=== PATIENT | female | born 1970 | race Caucasian/White ===

== ENCOUNTER 2020-04-10 17:39 | Outpatient (CLI) | payer OTHER, SELFPAY ==
--- NOTE | ~2020-04-10 | MM_ITS ---
EXAMINATION: MM screening [facility] BI w tenzin HISTORY: Screening mammogram TECHNIQUE: Craniocaudal and mediolateral oblique 3-D tomosynthesis images were obtained and synthetic 2-D images were generated. CAD analysis was submitted and interpreted. COMPARISON: 10/31/2018, 02/11/2017, 08/18/2016, 08/14/2016 BREAST PARENCHYMAL COMPOSITION: There are scattered areas of fibroglandular density. FINDINGS: There is no evidence of suspicious mass, calcification, or architectural distortion to sugg est malignancy in either breast. There has been no suspicious interval change. IMPRESSION: 1. No mammographic evidence of malignancy. 2. Recommend routine screening mammography in one year. BI-RADS Category 1: Negative Reviewed, dictated and finalized at location A.
== END 2020-04-10 17:40 | disposition home or self-care (01) ==
PROVIDERS: PCP Family Medicine Adolescent Medicine; Visit Provider Obstetrics & Gynecology
DX: Z12.31 Encounter for screening mammogram for malignant neoplasm of breast (principal)
CPT/HCPCS: 77063; 77067

== ENCOUNTER 2020-12-10 17:36 | Emergency (ER) | payer OTHER, SELFPAY ==
[2020-12-10] VITALS (7 sets, daily range): BP systolic 117–155; BP diastolic 81–95; PULSE 61–73; RESP 14–16; TEMP 36.3; O2SAT 97–100
--- NOTE | ~2020-12-10 | CT_ITS ---
EXAMINATION: CTA brain carotid EXAM DATE: 12/10/2020 19:55 INDICATION: Right-sided numbness, facial and arm. TECHNIQUE: Noncontrast head CT. Spiral CTA of the carotid arteries was performed with intravenous i njection 100 cc of Omnipaque 350. Axial, coronal, sagittal reformatted images reviewed. Additional r eformatted images created on dedicated 3-D workstation. NASCET comparable standard used to assess th e degree of arterial stenosis. Spiral CT angiogram cerebral arteries performed with the same intrave nous injection of contrast. Source images of the brain CTA transferred to dedicated workstation for 3 -D rotational image creation. Coronal, sagittal maximum intensity pixel images also reviewed. The d ose-length product (DLP) for this examination was 1824.27 mGy-cm. The exposure was tailored accordi ng to patient size, and iterative reconstruction (ASIR) was used as additional dose reduction techniq ue. Correlation is made to brain MRI 06/19/2019. FINDINGS: There is no carotid bulb plaque or stenosis. Minimal carotid siphon arterial sclerosis. The re is left-sided posterior communicating artery dominant posterior cerebral artery. There is no car otid or vertebral basilar arterial dissection or fibromuscular dysplasia. There are no cerebral arter y aneurysms. There is symmetric cerebral artery arborization. The sagittal, transverse and sigmoid si nuses enhance normally, no venous sinus thrombosis. Internal cerebral veins also enhance normally. 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 There is no acute intraparenchymal hemorrhage. No evidence of intraparenchymal brain mass lesion. No evidence of acute infarction. There is no mass effect or midline shift. There is no obstructive hydrocephalus suspected. There are no extra-axial collections. Incidental Findings: Mild cervical arthropathy. IMPRESSION: 1. No acute carotid or intracranial findings. 2. Bilateral carotid bulb 0% stenosis. Reviewed, dictated and finalized at location A.
--- NOTE | ~2020-12-10 | XR_ITS ---
EXAMINATION: XR chest 1V portable EXAM DATE: 12/10/2020 18:11 INDICATION: Shortness of breath, right-sided numbness. TECHNIQUE: Portable AP frontal chest x-ray was obtained. Comparison is made to prior examination from 03/12/2019. FINDINGS: The lungs are clear. There are no pleural effusions. The cardiomediastinal silhouette is within normal limits. There is no pneumothorax suspected. The bones and soft tissues are unremarkab le. IMPRESSION: No acute cardiopulmonary findings. Reviewed, dictated and finalized at location A.
--- NOTE | 2020-12-10 17:57 | ECG_ITS ---
Measurements Intervals [place] Rate: 58 P: 5 [place]: 161 QRS: 4 QRSD: 98 T: 30 QT: 425 QTc: 418 Interpretive Statements SINUS BRADYCARDIA DELAYED PRECORDIAL R/S TRANSITION BORDERLINE ECG Electronically Signed On 12-10-2020 18:09:35 CDT by Butch Bee D.O.
[2020-12-10 18:12] LABS: Basophils Absolute Auto 0.1 K/mm3 (0.0-0.1); Basophils Percent Auto 0.8 % (0.2-1.2); Eosinophils Absolute Auto 0.1 K/mm3 (0-0.3); Eosinophils Percent Auto 1.7 % (0-4.4); Hematocrit 38.2 % (37.0-47.0); Hemoglobin 12.9 g/dL (12.0-15.0); Immature Granulocyte Absolute 0.03 K/mm3 (0.00-0.031); Immature Granulocyte Percent A 0.4 % (0-0.5); Lymphocytes Absolute Auto 3.03 K/mm3 (0.9-3.2); Lymphocytes Percent Auto 36.2 % (18.3-44.2); Mean Corpuscular HGB Conc 33.8 g/dl (32-36); Mean Corpuscular Hemoglobin 30.6 pg (26-34); Mean Corpuscular Volume 90.7 fl (80-100); Mean Platelet Volume 8.1 fl (7.4-10.4); Monocytes Absolute Auto 0.6 K/mm3 (0.1-0.6); Monocytes Percent Auto 7.5 % (2.6-8.5); Neutrophils Absolute Auto 4.5 K/mm3 (1.3-6.7); Neutrophils Percent Auto 53.4 % (45.5-73.1); Platelet Count Result 410 k/mm3 (150-375); Red Blood Count 4.21 M/mm3 (4.2-5.4); Red Cell Distribution Width 11.9 % (11.5-14.5); White Blood Count 8.4 K/mm3 (4.5-10.0)
[2020-12-10 18:21] LABS: INR 0.9; Prothrombin Time 13.2 Seconds (11.1-14.7)
[2020-12-10 18:22] LABS: Anion Gap 13 mmol/L (8-16); Blood Urea Nitrogen 11 mg/dL (7-17); Calcium 8.9 mg/dL (8.4-10.2); Carbon Dioxide 20 mmol/L (22-30); Chloride 101 mmol/L (98-107); Estimated CRCL calculation 105 ml/min; Estimated Glomerular Filt Rate > 60; Glucose 102 mg/dL (65-105); Partial Thromboplastin Time 29.4 SECONDS (22.3-36.8); Potassium 2.9 mmol/L (3.4-5.0); Sodium 134 mmol/L (137-145)
[2020-12-10 18:34] LABS: Troponin I < 0.012 ng/mL (0.000-0.034)
[2020-12-10] MEDS: POTASSIUM CHLORIDE 20 MEQ PACKET (FOR LIQUID) 40 MEQ PO (18:49)
[2020-12-10 18:53] LABS: Magnesium 1.5 mg/dL (1.6-2.3)
[2020-12-10] MEDS: LORazepam INJ (*CRX) 2 MG/ML VIAL 1 MG IV PUSH (18:58)
[2020-12-10] MEDS: MAGNESIUM SULF 2 GM/WATER 50ML 2 GM/50 ML BAG IVPB (18:59)
--- NOTE | 2020-12-10 21:01 | ED.GENADULT ---
HPI - General Adult General Chief complaint: Neuro Symptoms/Deficit Stated complaint: near-syncope, tingling, nausea Time Seen by Provider: 12/10/20 17:44 Source: patient and RN notes reviewed Mode of arrival: ambulatory Limitations: no limitations History of Present Illness HPI narrative: Patient is a 50-year-old female who presents per private vehicle for evaluation of having developed some tingling in the right side of the face followed with shortness of breath chest discomfort and tingling and numbness in the lower extremities and weakness of the right upper arm patient on arrival is very anxious patient notes history of headaches in the distant past nothing recently denies any similar occurrence of this but notes that she has had anxiety in the past as well patient does not take any medications and denies any pertinent past medical history and on arrival is acutely anxious Related Data Home Medications Medication Instructions Recorded Confirmed No Home Medications 12/10/20 12/10/20 Allergies Allergy/AdvReac Type Severity Reaction Status Date / Time No Known Allergies Allergy Mild Verified 12/10/20 18:30 Review of Systems Review of Systems: All systems reviewed & are unremarkable except as noted in HPI and below PMFSH Past Medical History Medical History (Updated 12/10/20 @ 21:06 by Max Reese PA-C) Anxiety Cluster headache Social History Social History (Updated 12/10/20 @ 21:03 by Max Reese PA-C) Smoking status: Never smoker Exam Narrative: Exam Narrative: GENERAL: Well-appearing, well-nourished, and in no acute distress. HEAD: Normocephalic, atraumatic. EYES: PERRLA and EOMI. ENT: Nares clear, no rhinorrhea or epistaxis. Mucous membranes moist. NECK: Supple. No adenopathy or masses. No carotid bruits or JVD CHEST: Clear to auscultation. No respiratory distress. No wheezes rales or rhonchi HEART: Regular rate and rhythm. No murmur heard. Normal peripheral pulses. ABDOMEN: Soft, nontender, nondistended, normal active bowel sounds. EXTREMITIES: Normal range of motion. No edema. SKIN: Warm, dry, no rash. NEURO: No focal deficits. Alert and oriented x3. Cranial nerves II through XII grossly intact. Normal speech. Normal gait. Normal [id number] and [id number]. Equal roastmaster. No pronator drift. Cerebellar intact PSYCH: Normal mood and affect. Course Course Emergency Course: Patient resting comfortably in the room at this time was evaluated is feeling much better at this time with symptoms resolved was found to have slightly low potassium magnesium and potassium were given in the emergency department patient without other high risk changes in her evaluation felt appropriate for outpatient reevaluation with primary care and will be discharged home for outpatient reevaluation and agrees with this treatment plan Vital Signs Vital signs: Vital Signs Temperature 97.3 F L 12/10/20 17:42 Pulse Rate 73 12/10/20 17:42 Respiratory Rate 14 12/10/20 17:42 Blood Pressure 155/88 H 12/10/20 17:42 Pulse Oximetry 99 12/10/20 17:42 Temperature 97.3 F L 12/10/20 17:42 Pulse Rate 72 12/10/20 19:12 Respiratory Rate 16 12/10/20 18:47 Blood Pressure 155/88 H 12/10/20 17:42 Pulse Oximetry 99 12/10/20 17:42 Medical Decision Making MDM Narrative Medical decision making narrative: Patient symptoms have resolved there are no focal neurological deficits on exam. Subarachnoid hemorrhage is felt to be unlikey at this time. There is no history of fever, and neck is supple without meningismus, making meningitis unlikely. No traumatic history or signs of trauma on exam. No risk factors for CVA, risk factors reviewed. NO ocular signs on exam and in history to suggest acute glaucoma. Patients headache and symptoms are felt to be a reasonable candidate for outpatient evaluation Vital Signs Vital Signs: Vital Signs Temperature 97.3 F L 12/10/20 17:42 Pulse Rate 73
== END 2020-12-10 21:15 | disposition home or self-care (01) ==
PROVIDERS: Emergency Medicine Emergency Medical Services; Emergency Provider Emergency Medicine; PCP Family Medicine Adolescent Medicine
DX: R51.9 Headache, unspecified (principal); E87.6 Hypokalemia
CPT/HCPCS: 36415; 70496; 70498; 71045; 80048; 83735; 84484; 85025; 85610; 85730; 93005; 96365; 96375; 99284; A9270; J2060; J3475; Q9967

== ENCOUNTER 2021-10-15 19:47 | Emergency (ER) | payer OTHER, SELFPAY ==
--- NOTE | ~2021-10-15 | CT_ITS ---
EXAMINATION: CT soft tissue neck w con DATE: 10/15/2021 21:28 INDICATION: Right neck pain and swelling at the head of the clavicle. TECHNIQUE: Computed tomography (CT) of the neck was performed with 75 mL Omnipaque-350 intravenous co ntrast. Automated exposure control and iterative reconstruction technique were employed. The dose-reji gth product was 514.35 mGy-cm. COMPARISON: CTA neck 12/10/2020 FINDINGS: There are no pathologically enlarged lymph nodes. There is mild mucosal thickening in the p aranasal sinuses. The mastoid air cells are normal. There is mild cervical spondylosis. 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 There is asymmetric fat stranding around the right st ernoclavicular joint, new from 12/10/20. No erosions of bone. IMPRESSION: 1. Asymmetric fat stranding around the right sternoclavicular joint, new from 12/10/2020, consistent w ith inflammation versus infection. Reviewed, dictated and finalized at location A. IMPRESSION: 1. Asymmetric fat stranding around the right sternoclavicular joint, new from , consistent with inflammation versus infection.
[2021-10-15 19:48] VITALS: BP 164/105; PULSE 83; RESP 18; TEMP 36.6; O2SAT 98
[2021-10-15] MEDS: diazePAM INJ (*CRX) 10 MG/2 ML SYRINGE 5 MG IV PUSH (20:39)
[2021-10-15] MEDS: KETOROLAC 30 MG/ML VIAL (*BKC) IV PUSH (20:41)
[2021-10-15 21:01] LABS: Estimated CRCL calculation 105 ml/min; Estimated Glomerular Filt Rate > 60
--- NOTE | 2021-10-15 22:03 | ED.GENADULT ---
HPI - General Adult General Chief complaint: Neck Pain/Injury Stated complaint: neck swelling Time Seen by Provider: 10/15/21 20:15 History of Present Illness HPI narrative: Patient is a 50-year-old female who presents ER with right-sided shoulder pain and concerns for swelling. Patient reports couple weeks ago she was moving her mother and developed pain around the clavicular head of her chest wall. There is persisted. Tonight she lifted some folding chairs about a baseball game and the pain suddenly increased. She feels like she has some tingling or numbness over the supraclavicular portion of her neck and shoulder. No overt shoulder pain. No fevers or chills or sweats. No discoloration. No difficulty breathing or swallowing. Related Data Allergies Allergy/AdvReac Type Severity Reaction Status Date / Time No Known Allergies Allergy Mild Verified 10/15/21 19:52 Review of Systems Review of Systems: All systems reviewed & are unremarkable except as noted in HPI and below Constitutional: Constitutional: Denies chills, Denies fever(s) and Denies weakness ENT: Denies nasal congestion and Denies sore throat Comments: Neck swelling Cardiovascular: Cardiovascular: Denies chest pain and Denies radiating jaw, neck or arm pain Respiratory: Respiratory: Denies dyspnea Musculoskeletal: Musculoskeletal: Reports muscle cramps Neurologic: Denies focal weakness and Reports numbness PMFSH Past Medical History Medical History (Updated 10/15/21 @ 22:27 by Walter Hutchins MD) Anxiety Cluster headache Surgical History Surgical History (Updated 10/15/21 @ 22:18 by Walter Hutchins MD) H/O elbow surgery History of section Social History Social History (Updated 12/10/20 @ 21:03 by Max Reese PA-C) Smoking status: Never smoker Exam Narrative: GENERAL: Well-appearing, well-nourished, and in no acute distress. HEAD: Normocephalic, atraumatic. EYES: PERRL and EOMI. NECK: Supple. No change in sensation with palpation and sharp touch testing to the right neck. Mild asymmetry with swelling on the right side. Normal carotid pulse. CHEST: Clear to auscultation. No respiratory distress. Tender palpation of the right clavicular head at the sternum. Mild swelling around this area. HEART: Regular rate and rhythm. Normal peripheral pulses. EXTREMITIES: Normal range of motion. No edema. NEURO: No focal deficits. Alert and oriented x3. PSYCH: Normal mood and affect. Course Course Emergency Course: Patient informed of results. Discussed treatment plan. We will plan anti-inflammatories muscle x-rays for home. Discussed reducing activity and following up with PCP. Vital Signs Vital signs: Vital Signs Temperature 97.9 F 10/15/21 19:48 Pulse Rate 83 10/15/21 19:48 Respiratory Rate 18 10/15/21 19:48 Blood Pressure 164/105 H 10/15/21 19:48 Pulse Oximetry 98 10/15/21 19:48 Temperature 97.9 F 10/15/21 19:48 Pulse Rate 83 10/15/21 19:48 Respiratory Rate 18 10/15/21 19:48 Blood Pressure 164/105 H 10/15/21 19:48 Pulse Oximetry 98 10/15/21 19:48 Medical Decision Making Vital Signs Vital Signs: Vital Signs Temperature 97.9 F 10/15/21 19:48 Pulse Rate 83 10/15/21 19:48 Respiratory Rate 18 10/15/21 19:48 Blood Pressure 164/105 H 10/15/21 19:48 Pulse Oximetry 98 10/15/21 19:48 Temperature 97.9 F 10/15/21 19:48 Pulse Rate 83 10/15/21 19:48 Respiratory Rate 18 10/15/21 19:48 Blood Pressure 164/105 H 10/15/21 19:48 Pulse Oximetry 98 10/15/21 19:48 Lab Data Result diagrams: 10/15/21 20:35 Labs: Lab Results 10/15/21 Range/Units 20:35 Creatinine 0.70 (0.7-1.0) mg/dL Estim Creat Clear Calc 105 ml/min Estimated GFR > 60 (59 - ) Imaging Data Radiologist's impression: ITS Impressions Soft Tissue Neck CT 10/15/21 21:37 IMPRESSION: 1. Asymmetric fat stranding around the right sternoclavicular join
[2021-10-15 22:49] VITALS: PULSE 68; RESP 18; O2SAT 99
== END 2021-10-15 22:51 | disposition home or self-care (01) ==
PROVIDERS: Emergency Provider Emergency Medicine; PCP Family Medicine Adolescent Medicine
DX: S43.61XA Sprain of right sternoclavicular joint, initial encounter (principal); X50.9XXA Other and unspecified overexertion or strenuous movements or postures, initial encounter
CPT/HCPCS: 36415; 70491; 82565; 96374; 96375; 99284; J1885; J3360; Q9967

== ENCOUNTER 2022-06-25 15:51 | Outpatient (CLI) | payer OTHER, SELFPAY ==
--- NOTE | ~2022-06-25 | MM_ITS ---
EXAMINATION: MM screening [facility] BI w tenzin HISTORY: Screening mammogram TECHNIQUE: Craniocaudal and mediolateral oblique 3-D tomosynthesis images were obtained and synthetic 2-D images were generated. Bilateral rotated lateral CC views. CAD analysis was submitted and interp reted. COMPARISON: 04/10/2020, 10/31/2018 bilateral screening mammogram examinations BREAST PARENCHYMAL COMPOSITION: There are scattered areas of fibroglandular density. FINDINGS: Stable circumscribed benign-appearing density in the posterior upper-outer right breast, li krishna a benign intramammary lymph node Approximately 6 mm circumscribed opacity is noted at the posterior margin of the mid to lower outer l eft breast (craniocaudal Tomosynthesis image 28/74). Diagnostic left mammogram and left breast ultras ound examination are recommended. No suspicious mass, architectural distortion, malignant calcification, skin thickening or retraction of either breast is noted otherwise. IMPRESSION: 1. 6 mm circumscribed mass at the posterior mid to lower outer left breast 2. Diagnostic left mammogram and left breast ultrasound examination are recommended BI-RADS Category 0: Incomplete: Needs additional imaging evaluation. Reviewed, dictated and finalized at location A. S TRANSFER CLERK IMPRESSION: 1. 6 mm circumscribed mass at the posterior mid to lower outer left breast 2. Diagnostic left mammogram and left breast ultrasound examination are recomme nded BI-RADS Category 0: Incomplete: Needs additional imaging evaluation.
== END 2022-06-25 15:52 | disposition home or self-care (01) ==
LOC: ANHIMG 15:55
PROVIDERS: PCP Family Medicine Adolescent Medicine; Visit Provider Obstetrics & Gynecology
DX: Z12.31 Encounter for screening mammogram for malignant neoplasm of breast (principal); R92.8 Other abnormal and inconclusive findings on diagnostic imaging of breast
CPT/HCPCS: 77063; 77067

== ENCOUNTER 2022-07-12 12:25 | Outpatient (CLI) | payer OTHER, SELFPAY ==
--- NOTE | ~2022-07-12 | MMUS_ITS ---
EXAMINATION: MM diagnostic [facility] LT w tenzin, US breast LT limited HISTORY: Follow-up left breast asymmetry TECHNIQUE: Additional 3-D tomosynthesis images of the left breast were performed and synthetic 2-D im ages were generated. CAD analysis was submitted and interpreted. High resolution Limited left breast ultrasound was performed. COMPARISON: Comparison to multiple prior studies sequentially, with oldest reviewed study dated 09/2016. BREAST PARENCHYMAL COMPOSITION: Breast composed of scattered areas of fibroglandular density FINDINGS: MAMMOGRAPHIC FINDINGS: There are no suspicious masses, calcifications or architectural distortion in the left breast. ULTRASOUND: Limited left breast ultrasound: At 1:00, 3 cm from the nipple there are 2 separate oval hypoechoic ma sses with parallel orientation, no significant posterior features, largest measuring 1 cm. IMPRESSION: 1. Probable benign left breast masses. 2. Recommend 6 month follow-up Limited left breast ultrasound BI-RADS category 3, probably benign findings. Reviewed, dictated and finalized at location A. ICULUM DESIGNER IMPRESSION: 1. Probable benign left breast masses. 2. Recommend 6 month follow-up Limited left breast ultrasound BI-RADS category 3, probably benign findings.
== END 2022-07-12 12:26 | disposition home or self-care (01) ==
LOC: ANHIMG 12:26
PROVIDERS: PCP Family Medicine Adolescent Medicine; Visit Provider Obstetrics & Gynecology
DX: R92.8 Other abnormal and inconclusive findings on diagnostic imaging of breast (principal)
CPT/HCPCS: 76642; 77061; 77065; G0279

== ENCOUNTER → 2023-01-20 08:14 | Outpatient (CLI) | payer OTHER, SELFPAY ==
--- NOTE | ~2023-01-20 | US_ITS ---
EXAMINATION: US breast LT limited HISTORY: Six-month follow-up for probably benign left breast masses TECHNIQUE: Limited left breast ultrasound is performed FINDINGS: Again seen are adjacent, stable, oval, circumscribed, parallel, hypoechoic mass with no pos terior features or internal vascularity at the 1:00 location 3 cm from the nipple. None demonstrate s uspicious interval change. There is a 4 mm oval, circumscribed, parallel, hypoechoic mass with no pos terior features or internal vascularity at the 3:00 location, 6 cm from the nipple. IMPRESSION: Probably benign left breast masses. Recommend bilateral diagnostic mammogram and left breast ultrasou nd in six months. BI-RADS category 3, probably benign findings. Reviewed, dictated and finalized at location A. IMPRESSION: Probably benign left breast masses. Recommend bilateral diagnostic mammogram an d left breast ultrasound in six months. BI-RADS category 3, probably benign findings.
== END ==
PROVIDERS: PCP Family Medicine Adolescent Medicine; Visit Provider Obstetrics & Gynecology
DX: R92.8 Other abnormal and inconclusive findings on diagnostic imaging of breast (principal)
CPT/HCPCS: 76642

== ENCOUNTER 2023-08-23 08:04 | Outpatient (CLI) | payer OTHER, SELFPAY ==
--- NOTE | ~2023-08-23 | MMUS_ITS ---
EXAMINATION: MM diagnostic [facility] BI w tenzin, US breast LT limited HISTORY: Six-month follow-up of probably benign left breast masses at 1:00 3 cm from nipple and 3:00 6 cm from nipple TECHNIQUE: ML, MLO and CC 3-D tomosynthesis images of both breasts were performed and synthetic 2-D i mages were generated. CAD analysis was submitted and interpreted. High resolution targeted left 1:00 and 3:00 breast ultrasound examination was performed. COMPARISON: 01/20/2023 left Limited breast ultrasound 07/12/2022 diagnostic left mammogram and limited left breast ultrasound 06/25/2022, 04/10/2020 bilateral screening mammogram examinations BREAST PARENCHYMAL COMPOSITION: There are scattered areas of fibroglandular density. FINDINGS: MAMMOGRAPHIC FINDINGS: No suspicious mass or architectural distortion, malignant calcification, skin thickening or retractio n or significant new or developing density is detected. ULTRASOUND: 1:00 3 cm from nipple: There are 3 circumscribed sonolucencies consistent with through transmission, no posterior enhancement or internal vascularity, consistent with small cysts, measuring up to 2.5 mm , 2.9 mm and 3.4 mm, diminished in size overall since 01/20/2023. 3:00 6 cm from nipple: Parallel circumscribed sonolucency measuring 2.2 x 3.3 mm, with through transm ission, consistent with simple cyst, slightly diminished in size since 01/20/2023. IMPRESSION: 1. Benign cysts; no mammographic or sonographic evidence of malignancy 2. Routine annual mammographic screening is recommended BI-RADS Category 2: Benign finding(s). . Reviewed, dictated and finalized at location A. IMPRESSION: 1. Benign cysts; no mammographic or sonographic evidence of malignancy 2. Routine annual mammographic screening is recommended BI-RADS Category 2: Benign finding(s). .
== END 2023-08-23 08:05 ==
PROVIDERS: PCP Family Medicine Adolescent Medicine; Visit Provider Obstetrics & Gynecology
DX: R92.8 Other abnormal and inconclusive findings on diagnostic imaging of breast (principal)
CPT/HCPCS: 76642; 77062; 77066; G0279

== ENCOUNTER 2024-05-30 08:40 | Emergency (ER) | payer OTHER, SELFPAY ==
[2024-05-30 08:50] VITALS: BP 145/85; PULSE 86; RESP 20; TEMP 36.6; O2SAT 99
[2024-05-30] MEDS: ONDANSETRON INJ 4 MG/2 ML VIAL IV PUSH (09:05)
[2024-05-30 09:16] LABS: Basophils Absolute Auto 0.1 K/mm3 (0.0-0.1); Basophils Percent Auto 0.7 % (0.2-1.2); Eosinophils Absolute Auto 0.1 K/mm3 (0-0.3); Hematocrit 39.2 % (37.0-47.0); Hemoglobin 13.3 g/dL (12.0-15.0); Immature Granulocyte Absolute 0.04 K/mm3 (0.00-0.031); Immature Granulocyte Percent A 0.4 % (0-0.5); Lymphocytes Absolute Auto 1.52 K/mm3 (0.9-3.2); Lymphocytes Percent Auto 16.2 % (18.3-44.2); Mean Corpuscular HGB Conc 33.9 g/dl (32-36); Mean Corpuscular Hemoglobin 30.9 pg (26-34); Mean Corpuscular Volume 91.2 fl (80-100); Mean Platelet Volume 8.2 fl (7.4-10.4); Monocytes Absolute Auto 0.6 K/mm3 (0.1-0.6); Monocytes Percent Auto 6.8 % (2.6-8.5); Neutrophils Percent Auto 74.9 % (45.5-73.1); Platelet Count Result 406 k/mm3 (150-375); White Blood Count 9.4 K/mm3 (4.5-10.0)
[2024-05-30 09:23] LABS: Alanine Aminotransferase 18 U/L (6-35); Albumin Level 4.1 g/dL (3.5-5.1); Alkaline Phosphatase 76 U/L (38-126); Anion Gap 7 mmol/L (4-12); Aspartate Amino Transferase 25 U/L (14-36); Bilirubin,Total 0.4 mg/dL (0.2-1.3); Blood Urea Nitrogen 9 mg/dL (7-17); Calcium 9.5 mg/dL (8.4-10.2); Carbon Dioxide 24 mmol/L (22-30); Chloride 104 mmol/L (98-107); Estimated CRCL calculation 105 ml/min; Estimated Glomerular Filt Rate > 60; Glucose 118 mg/dL (65-110); Lipase 122 U/L (23-300); Potassium 3.8 mmol/L (3.4-5.0); Sodium 135 mmol/L (137-145)
--- NOTE | 2024-05-30 10:16 | ED_ITS ---
HPI - General Adult General Chief complaint: Nausea/Vomiting/Diarrhea Stated complaint: nausea, choked yesterday Time Seen by Provider: 05/30/24 08:46 Source: patient Mode of arrival: ambulatory Limitations: no limitations History of Present Illness HPI narrative: 53-year-old otherwise healthy here with the complaints of mid abdominal pain with started last evening. Patient states that she was choking and 1 of focal worker did a Heimlich procedure and ever since then she has been having pain. She complains of mild nausea. No history of vomiting. She also states that she is feeling very anxious as she is about to board the plane. Onset (ago): day(s) (1) Location: abdomen Severity: moderate Quality: aching Associated symptoms: nausea/vomiting Treatments prior to arrival: none Related Data Home Medications ?Medication ?Instructions ?Recorded ?Confirmed ?Last Taken ?Type calcium carbonate (Tums) 200 mg PO BID 03/22/24 03/22/24 Unknown History multivitamin 1 tablet PO DAILY 03/22/24 03/22/24 Unknown History turmeric 400 mg capsule mg PO 03/22/24 03/22/24 Unknown History Allergies Allergy/AdvReac Type Severity Reaction Status Date / Time nitrofurantoin (From Allergy Intermediate Rash Verified 05/30/24 08:58 Macrobid) Review of Systems 2 Review of Systems: All systems reviewed & are unremarkable except as noted in HPI and below Constitutional: Constitutional: Reports no additional constitutional complaints Eyes: Eyes: Reports no additional eye complaints ENT: Reports system reviewed and no additional complaints, except as documented Cardiovascular: Cardiovascular: Reports no additional cardiovascular complaints Respiratory: Respiratory: Reports no additional respiratory complaints Gastrointestinal: Gastrointestinal: Reports as per HPI Musculoskeletal: Musculoskeletal: Reports no additional musculoskeletal complaints Neurologic: Reports system reviewed and no additional complaints, except as documented PMFSH Past Medical History Medical History Anxiety Cluster headache Surgical History Surgical History H/O elbow surgery History of section Social History Social History Smoking status: Never smoker Exam 2 Narrative: GENERAL: Well-appearing, well-nourished, and in no acute distress. HEAD: Normocephalic, atraumatic. EYES: PERRLA and EOMI. ENT: Nares clear, no rhinorrhea or epistaxis. Mucous membranes moist. NECK: Supple. CHEST: Clear to auscultation. No respiratory distress. HEART: Regular rate and rhythm. No murmur heard. Normal peripheral pulses. ABDOMEN: Soft, nontender, nondistended, normal active bowel sounds. EXTREMITIES: Normal range of motion. No edema. SKIN: Warm, dry, no rash. NEURO: No focal deficits. Alert and oriented x3. PSYCH: Normal mood and affect. Course Course Emergency Course: Patient comfortably resting. Informed her about her lab work. Her nausea is much improved with Zofran. Coronavirus a take Tylenol ibuprofen for pain and Zofran for nausea. She feels comfortable going home Vital Signs Vital signs: Vital Signs Temperature 36.6 C 05/30/24 08:50 Pulse Rate 86 05/30/24 08:50 Respiratory Rate 20 05/30/24 08:50 Blood Pressure 145/85 H 05/30/24 08:50 Pulse Oximetry 99 05/30/24 08:50 Oxygen Delivery Room Air 05/30/24 08:50 Temperature 36.6 C 05/30/24 08:50 Pulse Rate 86 05/30/24 08:50 Respiratory Rate 20 05/30/24 08:50 Blood Pressure 145/85 H 05/30/24 08:50 Pulse Oximetry 99 05/30/24 08:50 Oxygen Delivery Room Air 05/30/24 08:50 Medical Decision Making Differential Diagnosis Differential Diagnosis: Musculoskeletal pain, gastritis, anxiety Vital Signs Vital Signs: Vital Signs Temperature 36.6 C 05/30/24 08:50 Pulse Rate 86 05/30/24 08:50 Respiratory Rate 20 05/30/24 08:50 Blood Pressure 145/85 H 05/30/24 08:50 Pulse Oximetry 99 05/30/24 08:50 Oxygen Delivery Room Air 05/30/24 08:50 Temperature 36.6 C 05/30/24 08:50 Pulse Rate 86 05/30/24 08:50 Respiratory Rate 20 05/30/24 08:50 Blood Pressure 145/85 H 05/30/24 08:50 Pulse Oximetry 99 05/30/24 08:50 Oxygen Delivery Room Air 05/30/24 08:50 Lab Data Lab results reviewed: Yes I reviewed the patient's lab results. 12/18/24 09:00 05/30/24 09:00 Labs: Lab Results 05/30/24 Range/Units 09:00 WBC 9.4 (4.5-10.0) K/mm3 RBC 4.30 (4.2-5.4) M/mm3 Hgb 13.3 (12.0-15.0) g/dL Hct 39.2 (37.0-47.0) % MCV 91.2 (80-100) fl MCH 30.9 (26-34) pg MCHC 33.9 (32-36) g/dl RDW 12.0 (11.5-14.5) % Plt Count 406 H (150-375) k/mm3 MPV 8.2 (7.4-10.4) fl Immature Gran % (Auto) 0.4 (0-0.5) % Neut % (Auto) 74.9 H (45.5-73.1) % Lymph % (Auto) 16.2 L (18.3-44.2) % [place] % (Auto) 6.8 (2.6-8.5) % Eos % (Auto) 1.0 (0-4.4) % Baso % (Auto) 0.7 (0.2-1.2) % Lymph # (Auto) 1.52 (0.9-3.2) K/mm3 [place] # (Auto) 0.6 (0.1-0.6) K/mm3 Eos # (Auto) 0.1 (0-0.3) K/mm3 Baso # (Auto) 0.1 (0.0-0.1) K/mm3 Abs Immat Gran (auto) 0.04 H (0.00-0.031) K/mm3 Absolute Neuts (auto) 7.0 H (1.3-6.7) K/mm3 Absolute Nucleated RBC 0.000 (0.0-0.012) K/mm3 Nucleated RBC % 0.0 (0.0-0.2) % Sodium 135 L (137-145) mmol/L Potassium 3.8 (3.4-5.0) mmol/L Chloride 104 (98-107) mmol/L Carbon Dioxide 24 (22-30) mmol/L Anion Gap 7 (4-12) mmol/L BUN 9 (7-17) mg/dL Creatinine 0.70 (0.7-1.0) mg/dL Estim Creat Clear Calc 105 ml/min Estimated GFR > 60 (59 - ) Glucose 118 H (65-110) mg/dL Calcium 9.5 (8.4-10.2) mg/dL Total Bilirubin 0.4 (0.2-1.3) mg/dL AST 25 (14-36) U/L ALT 18 (6-35) U/L Alkaline Phosphatase 76 (38-126) U/L Total Protein 8.0 (6.3-8.2) g/dL Albumin 4.1 (3.5-5.1) g/dL Lipase 122 (23-300) U/L Discharge Plan Discharge Clinical Impression: Abdominal pain Qualifiers: Abdominal location: unspecified location Qualified Code(s): R10.9 - Unspecified abdominal pain Patient Disposition: Home, Self-Care Condition: Stable Instructions: Abdominal Pain (ED) Additional Instructions: continue home medication , take Motrin or Tylenol for pain, Zofran for nausea . Patient Language: Czech Prescriptions: New ondansetron 4 mg tablet,disintegrating 4 mg PO Q6-8H PRN (Reason: nausea and vomiting) Qty: 14 0RF No Action turmeric 400 mg capsule PO multivitamin Tablet 1 tablet PO DAILY calcium carbonate [Tums] 200 mg calcium (500 mg) tablet,chewable 200 mg PO BID Follow-up/Referrals: Chavez Cardenas MD [Primary Care Provider] -
== END 2024-05-30 10:44 | disposition home or self-care (01) ==
PROVIDERS: Emergency Provider Family Medicine; PCP Family Medicine Adolescent Medicine
DX: R10.9 Unspecified abdominal pain (principal)
CPT/HCPCS: 36415; 80053; 83690; 85025; 96374; 99284; J2405